=== PATIENT | male | born 1960 | race American Indian/Alaskan Native ===

== ENCOUNTER 2018-03-19 03:23 | Emergency (ER) | payer OTHER ==
[2018-03-19 04:48] VITALS: BP 120/79
--- NOTE | 2018-03-19 05:16 | Emergency Department Report ---
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 ) Place: home Alledged Intoxication: No Compliant with Home Medications: No Treatments Prior to Arrival: none Allergies/Adverse reactions: Allergies Allergy/AdvReac Type Severity Reaction Status Date / Time No Known Allergies Allergy Unverified 03/19/18 04:34 ED Review of Systems ROS: Stated complaint: CHEMO MACHINE CAME UNPLUGGED Other details as noted in HPI Constitutional: denies: chills, fever Eyes: denies: eye pain, eye discharge, vision change ENT: denies: ear pain, throat pain Respiratory: denies: cough, shortness of breath, wheezing Cardiovascular: denies: chest pain, palpitations Endocrine: no symptoms reported Gastrointestinal: denies: abdominal pain, nausea, diarrhea Genitourinary: denies: urgency, dysuria Musculoskeletal: denies: back pain, joint swelling, arthralgia Skin: denies: rash, lesions Neurological: denies: headache, weakness, paresthesias Psychiatric: denies: anxiety, depression Hematological/Lymphatic: denies: easy bleeding, easy bruising ED Past Medical Hx - Past Medical History Previous Medical History?: Yes Hx of Cancer: Yes (colon) - Surgical History Past Surgical History?: No - Social History Smoking Status: Light Tobacco Smoker Substance Use Type: None ED Physical Exam - General Limitations: No Limitations General appearance: alert, in no apparent distress - Head Head exam: Present: atraumatic, normocephalic - Eye Eye exam: Present: normal appearance - ENT ENT exam: Present: mucous membranes moist - Neck Neck exam: Present: normal inspection - Respiratory Respiratory exam: Present: normal lung sounds bilaterally. Absent: respiratory distress - Cardiovascular Cardiovascular Exam: Present: regular rate, normal rhythm. Absent: systolic murmur, diastolic murmur, rubs, gallop - GI/Abdominal GI/Abdominal exam: Present: soft, normal bowel sounds - Rectal Rectal exam: Present: deferred - Extremities Exam Extremities exam: Present: normal inspection - Back Exam Back exam: Present: normal inspection - Neurological Exam Neurological exam: Present: alert, oriented X3 - Psychiatric Psychiatric exam: Present: normal affect, normal mood - Skin Skin exam: Present: warm, dry, intact, normal color, other (right sc [place] port to chemopump ). Absent: rash ED Course Vital Signs 03/19/18 04:34 Temperature 98.5 F Pulse Rate 66 Respiratory 16 Rate Blood Pressure 120/79 O2 Sat by Pulse 97 Oximetry ED Medical Decision Making - Medical Decision Making pump tubing replaced irrigated by nursing, pump functioning properly at this time pt has no other complaint for dc to home in stable condition at this time. will follow up with pcp in 2 days , pt is currently a/o x 3 ambulatory gait steady with nad at this time. ED Disposition Clinical Impression: Complication, blocked central line Qualifiers: Encounter type: initial encounter Qualified Code(s): T82.594A - Other mechanical complication of infusion catheter, initial encounter Disposition: DC-01 TO HOME OR SELFCARE Is pt being admited?: No Does the pt Need Aspirin: No Condition: Good Instructions: Intravenous Chemotherapy (ED) Referrals: PRIMARY CARE, [Primary Care Provider] - 3-5 Days Forms: Work/School Release Form(ED) Time of Disposition: 05:27
== END 2018-03-19 05:36 | disposition home or self-care (01) ==
LOC: ED 03:23
DX: T82.594A Other mechanical complication of infusion catheter, initial encounter (principal); F17.200 Nicotine dependence, unspecified, uncomplicated; Z85.038 Personal history of other malignant neoplasm of large intestine
CPT/HCPCS: 99282